=== PATIENT | female | born 2005 | race Caucasian/White ===

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

== ENCOUNTER → 2023-06-01 | Outpatient (CLI) | payer OTHER, SELFPAY ==
[2023-06-01 17:41] LABS: Absolute Lymphocyte Count 2.74 X10^3/uL (0.83-4.51); Absolute Neutrophil Count 2.3 X10^3/uL (2.0-7.7); Basophil# 0.06 X10^3/uL; Eosinophil# 0.23 X10^3/uL; Eosinophils% 3.8 % (0-5); Hematocrit 34.2 % (37-47); Hemoglobin 10.2 g/dL (12.0-15.0); Lymphocyte # 2.74 X10^3/ul (0.83-4.51); Lymphocyte % 45.3 % (19-41); Mean Corp Hgb Conc 29.8 g/dL (32-36); Mean Corpuscular Hgb 24.6 pg (27.0-32.0); Mean Corpuscular Volume 82.6 fL (81-99); Mean Platelet Vol. 10.3 fl (6.2-12.0); Monocyte# 0.66 X10^3/uL; Monocyte% 10.9 % (0-10); NRBC Flagged by Analyzer 0 % (0-5); Neutrophil # 2.34 X10^3/uL (2.7-7.7); Neutrophil % 38.7 % (47-70); Platelet Count 350 K/mm3 (150-450); RBC Distribution Width CV 13.2 % (11.6-14.6); RBC Distribution Width SD 39.8 fl (35.1-43.9); Red Blood Count 4.14 M/mm3 (4.2-5.4); White Blood Count 6.1 K/mm3 (4.4-11.0)
[2023-06-01 17:56] LABS: Erythrocyte Sedimentation Rate 28 mm/hr (0-30)
[2023-06-01 18:07] LABS: Vitamin B12 310 pg/mL (211-911)
[2023-06-01 18:28] LABS: Ferritin 5 ng/mL (8-252); Iron 30 ug/dL (50-170); Magnesium 2.1 mg/dL (1.6-2.6); Thyroid Stim Hormone (TSH) 1.08 uIU/mL (0.358-3.74)
== END | disposition home or self-care (01) ==
LOC: MFPLAB 16:49
PROVIDERS: PCP Family Medicine; Visit Provider Family Medicine
DX: G25.81 Restless legs syndrome (principal)
CPT/HCPCS: 36415; 82607; 82728; 83540; 83735; 84443; 85025; 85652

== ENCOUNTER → 2024-11-26 | Outpatient (CLI) | payer OTHER, SELFPAY ==
[2024-11-26 16:15] LABS: Anion Gap 14 (5-15); BUN 9 mg/dL (4-19); BUN/Creat Ratio 13.3 RATIO (10-20); Calcium,Total 9.5 mg/dL (7.6-11.0); Carbon Dioxide 20.8 mmol/L (21.0-32.0); Chloride 103 mmol/L (98-108); Creatinine, Serum 0.64 mg/dL (0.70-1.20); EST Glomerular Filtration Rate 129 (>60); Glucose 75 mg/dL (70-99); Potassium 4.2 mmol/L (3.3-5.1); Sodium Level 137 mmol/L (133-145)
[2024-11-26 16:33] LABS: Erythrocyte Sedimentation Rate 22 mm/hr (0-30)
== END | disposition home or self-care (01) ==
LOC: MFPLAB 12:12
PROVIDERS: PCP Family Medicine; Referring Provider Family Medicine; Visit Provider Family Medicine
DX: R55 Syncope and collapse (principal); R63.5 Abnormal weight gain
CPT/HCPCS: 36415; 80048; 82533; 83735; 84443; 85652

== ENCOUNTER → 2024-12-06 | Outpatient (CLI) | payer OTHER, SELFPAY | END | disposition home or self-care (01) | LOC: MFPLAB 11:08 | PROVIDERS: PCP Family Medicine; Referring Provider Family Medicine; Visit Provider Family Medicine | DX: R79.89 Other specified abnormal findings of blood chemistry (principal) | CPT/HCPCS: 36415; 82533 ==

== ENCOUNTER 2024-12-13 17:56 | Emergency (ER) | payer OTHER, SELFPAY ==
[2024-12-13 17:56] VITALS: BP 121/82; PULSE 105; RESP 16; TEMP 36.6; O2SAT 98; BMI 34.6
--- NOTE | 2024-12-13 18:14 | EX.ED.DYSGE1 ---
HPI <TOMMY Frias - Last Filed: 12/13/24 19:21> History of Present Illness Chief Complaint: Lower Extremity Injury Narrative Narrative: 19-year-old female developed a red rash and pain in the right medial knee yesterday. She states after the pain started a patient at work excellently hit her knee with her cane which made it feel worse. She has some pain radiating down to the calf. She has no weakness or numbness or tingling. No fever or chills. She has a history of 2 right knee surgeries in 2019 for meniscus and ligament repair. No recent injury. Urgent care recommended she come in for rule out of DVT. She has no history of DVT/PE and her only risk factor is oral control which she has been on since age 14. PFSH <TOMMY Frias - Last Filed: 12/13/24 19:21> [facility] Medical History (Updated 12/13/24 @ 19:04 by TOMMY Frias) Hypertension Asthma Physical exam, pre-employment Home Medications ?Medication ?Instructions ?Recorded ?Last Taken ?Type desogestrel-e.estradiol 0.15 1 tab PO QDAY 12/07/23 Unknown History mg-0.02 mg(21)/e.estrad 0.01 mg(5) tablet (Kariva (28)) escitalopram oxalate 20 mg tablet 20 mg PO QDAY 12/07/23 Unknown History cephalexin 500 mg capsule 500 mg PO Q6 7 days #28 CAPSULES 12/13/24 Unknown Rx Allergy/AdvReac Type Severity Reaction Status Date / Time milk (dairy) Allergy Unknown Unknown Verified 12/13/24 17:56 Family History (Updated 12/07/23 @ 17:26 by Jenifer Shaw) Other Asthma Hypertension Social History Smoking Status: Unknown if ever smoked ROS <TOMMY Frias - Last Filed: 12/13/24 19:21> ROS ED ROS Narrative Constitutional: Negative for fever, chills, malaise. CVS: Negative for chest pain. Respiratory: Negative for shortness of breath. Neuro: Negative for motor/sensory dysfunction. Skin: Positive for rash. EXAM <TOMMY Frias - Last Filed: 12/13/24 19:21> Physical Exam Narrative Exam Narrative: CONST: Patient sitting in no acute distress. EYES: Normal inspection. NECK: Normal inspection. RESP: No respiratory distress, CTAB. CVS: Regular rate and rhythm, no murmur, no gallop. SKIN: Warm, dry, intact. EXTREMITIES: Normal appearance of bilateral lower extremities. Right medial knee has proximately 4 x 4 circular area of erythema and warmth. There is no lymphangitic streaking. No fluctuance, crepitus, or bullae. Normal appearance of all joints without focal swelling. No Edema. Full range of motion of hip knee ankle and foot. Normal sensation. 2+ DP pulse. Soft compartments. NEURO: Alert and answering questions appropriately. PSYCH: Normal affect. Const Vital Signs: 12/13/24 17:56 Temperature 97.8 F Temperature Source Temporal Pulse Rate 105 H Respiratory Rate 16 Blood Pressure 121/82 H Blood Pressure Mean 95 Pulse Ox 98 Oxygen Delivery Method Room Air <Dr. Denny Herbert MD - Last Filed: 12/13/24 19:08> Physical Exam Const Vital Signs: 12/13/24 17:56 Temperature 97.8 F Temperature Source Temporal Pulse Rate 105 H Respiratory Rate 16 Blood Pressure 121/82 H Blood Pressure Mean 95 Pulse Ox 98 Oxygen Delivery Method Room Air MDM <TOMMY Frias - Last Filed: 12/13/24 19:21> MDM MDM Narrative Medical decision making narrative: History gathered from: Patient and her parents Differential includes: Cellulitis, allergic reaction, DVT 19-year-old female has patches of redness and warmth on the right medial knee. Looks more consistent with a cellulitis. She does report calf pain and is also tachycardic so an ultrasound was obtained and is negative for blood clots. I suspect her heart rate was due to anxiety. She will be placed on Keflex and the first dose was given here. Return precautions discussed. She was discharged in stable condition. I have personally performed a face to face assessment of the patient and have reviewed the JACQUELINE Note. I performed a substantive portion of the visit including all aspects of the following. My diaz findings include: History is [19-year-old female prior ACL tear repaired about 6 years ago by [facility]'. Complaining of discomfort rash medial aspect right knee. No fever. No chills. No recent illness no prior history.] Exam is [well-appearing 19-year-old female. Vital signs stable afebrile. Coming by her parents. H EENT exam unremarkable. Lungs clear. Heart regular rhythm. Abdomen soft nontender. Moving all 4 extremities. Right knee medially has a red rash about 3 inches wide. Consistent with either an early cellulitis or a local allergic reaction. She has no history of any type of insect sting. There is no lymphangitic streaking. Mildly tender. There is no crepitance of the skin. She has no inguinal lymphadenopathy. Neurovascular intact] Medical Decision Making [19-year-old female sent in overall DVT ultrasound was done was negative. Right knee is a rash consistent with an early cellulitis. There is no signs of septic joint. She be placed on Keflex 500 4 times daily for a week outpatient follow-up as needed.] Other additions or changes: [None] Radiography Diagnostic Testing: Clinical Impression(s) from Imaging Studies Venous Duplex 12/13/24 18:21 IMPRESSION: 1. No evidence of deep venous thrombosis in the right lower extremity. 2. Inflammatory changes of the medial right knee soft tissues, without well-formed fluid collection. Reading Location: [id number] <Dr. Denny Herbert MD - Last Filed: 12/13/24 19:08> [facility] MDM Narrative Medical decision making narrative: I have personally performed a face to face assessment of the patient and have reviewed the JACQUELINE Note. I performed a substantive portion of the visit including all aspects of the following. My diaz findings include: History is [19-year-old female prior ACL tear repaired about 6 years ago by [facility]. Complaining of discomfort rash medial aspect right knee. No fever. No chills. No recent illness no prior history.] Exam is [well-appearing 19-year-old female. Vital signs stable afebrile. Coming by her parents. H EENT exam unremarkable. Lungs clear. Heart regular rhythm. Abdomen soft nontender. Moving all 4 extremities. Right knee medially has a red rash about 3 inches wide. Consistent with either an early cellulitis or a local allergic reaction. She has no history of any type of insect sting. There is no lymphangitic streaking. Mildly tender. There is no crepitance of the skin. She has no inguinal lymphadenopathy. Neurovascular intact] Medical Decision Making [19-year-old female sent in overall DVT ultrasound was done was negative. Right knee is a rash consistent with an early cellulitis. There is no signs of septic joint. She be placed on Keflex 500 4 times daily for a week outpatient follow-up as needed.] Other additions or changes: [None] History & Record Review Discussion w/independent historian: Patient and Family Lab Data Attestation: I reviewed the patient's lab results. Lab results narrative: Noninvasive study right leg no DVT. Radiography Diagnostic Testing: Clinical Impression(s) from Imaging Studies Venous Duplex 12/13/24 18:21 IMPRESSION: 1. No evidence of deep venous thrombosis in the right lower extremity. 2. Inflammatory changes of the medial right knee soft tissues, without well-formed fluid collection. Reading Location: [id number] Discharge Plan Triage Chief Complaint: Lower Extremity Injury ED Midlevel Provider: Katiana Chung ED Provider: Denny Herbert Dx/Rx/DC Orders Clinical Impression: Cellulitis of knee, right Instructions: Cellulitis Dc Prescriptions: New cephalexin 500 mg capsule 500 mg PO Q6 7 Days Qty: 28 0RF No Action escitalopram oxalate 20 mg tablet 20 mg PO QDAY desog-e.estradiol/e.estradiol [Kariva (28)] 0.15-0.02 mgx21 /0.01 mg x 5 tablet 1 tab PO QDAY Primary Care Provider: Romeo Cortes Referrals: Romeo Cortes MD [Primary Care Provider] - Activity Restrictions/Additional Instructions: The ultrasound is negative for blood clots. This looks like a skin infection which is called cellulitis. Take the antibiotics as prescribed. Take Tylenol or Motrin as needed. If you develop significantly worsening redness or red streaking up the leg please come back for reevaluation. Print Language: Citizen Of [place] Disposition Disposition: Home, Self Care
--- NOTE | 2024-12-13 18:21 | US_ITS ---
PROCEDURE: VENOUS DUPLEX IMAG/LIMITED/UNI 12/13/2024 REASON FOR EXAM: F 19 y/o with right leg pain TECHNIQUE: Grayscale color flow and doppler analysis of the right lower extremity. COMPARISON: None FINDINGS: There is no intraluminal echogenicity to suggest the presence of a deep venous thrombosis. Appropriate respiratory variation, augmentation and venous compression is noted. Mild increased echogenicity suggestive of inflammation in the medial soft tissues of the right knee, at the area of clinical concern. No well-formed fluid collection. US/Venous Duplex Imag/Limited/Uni IMPRESSION: 1. No evidence of deep venous thrombosis in the right lower extremity. 2. Inflammatory changes of the medial right knee soft tissues, without well-fo rmed fluid collection. Reading Location: [id number]
[2024-12-13] MEDS: Cephalexin 250 MG Capsule 500 MG PO (19:17)
[2024-12-13 19:21] VITALS: BP 121/82; PULSE 105; RESP 16; TEMP 36.6; O2SAT 98
== END 2024-12-13 19:22 | disposition home or self-care (01) ==
PROVIDERS: Emergency Provider Emergency Medicine; PCP Family Medicine; Visit Provider Emergency Medicine
DX: L03.115 Cellulitis of right lower limb (principal); M79.661 Pain in right lower leg; I10 Essential (primary) hypertension; J45.909 Unspecified asthma, uncomplicated; Z79.3 Long term (current) use of hormonal contraceptives; Z79.899 Other long term (current) drug therapy
CPT/HCPCS: 93971; 99282

== ENCOUNTER 2024-12-18 09:10 | Outpatient (CLI) | payer OTHER, SELFPAY ==
[2024-12-18 10:58] LABS: CORTISOL AM 0.83 ug/dL (6.02-18.40)
== END 2024-12-18 23:59 | disposition home or self-care (01) ==
LOC: MFPLAB 09:10
PROVIDERS: PCP Family Medicine; Referring Provider Family Medicine; Visit Provider Family Medicine
DX: R79.89 Other specified abnormal findings of blood chemistry (principal)
CPT/HCPCS: 36415; 82533